=== PATIENT | male | born 1975 | race Caucasian/White ===

== ENCOUNTER 2021-07-20 22:08 | Emergency (ER) | payer OTHER ==
[~2021-07-20] VITALS: Ht 182.9 cm; Wt 116.6 kg
[2021-07-20] MEDS ORDERED: ACETAMINOPHEN-1 EAC2 PO (23:28)
[2021-07-20] MEDS ORDERED: TORADOL 10 MG T10 MG PO (23:28)
[2021-07-20] MEDS ORDERED: NORFLEX100 MG PO (23:28)
[2021-07-20] MEDS ORDERED: MELOXICAM15 MG PO (23:28)
[2021-07-20] MEDS ORDERED: LISINOPRIL-HCT1 EAC2 PO (23:34)
[2021-07-20 23:36] VITALS: BP 130/98
== END 2021-07-20 23:37 | disposition home or self-care (01) ==
LOC: M.ERS 22:08
DX: S46.912A Strain of unspecified muscle, fascia and tendon at shoulder and upper arm level, left arm, initial encounter (principal); I10 Essential (primary) hypertension; V89.2XXA Person injured in unspecified motor-vehicle accident, traffic, initial encounter; Y93.89 Activity, other specified; Y92.89 Other specified places as the place of occurrence of the external cause; Y99.8 Other external cause status